=== PATIENT | male | born 1975 | race African-American/Black ===

== ENCOUNTER → 2017-02-07 | Outpatient (CLI) | payer MEDICARE, MEDICAID ==
[~2017-02-07] MED LIST: IOHEXOL-300 100 ML BOTTLE ONE; SODIUM CHLORIDE 0.9% 10ML VIAL ONE
== END | disposition home or self-care (01) ==
LOC: CT 07:46
PROVIDERS: ATTEND Urology
DX: N28.1 Cyst of kidney, acquired (principal); Z85.47 Personal history of malignant neoplasm of testis; R05 Cough; N20.0 Calculus of kidney
CPT/HCPCS: 71010; 74178; A4216; Q9967

== ENCOUNTER → 2017-12-09 | Outpatient (CLI) | payer MEDICARE, MEDICAID ==
[~2017-12-09] MED LIST changes: -SODIUM CHLORIDE 0.9% 10ML VIAL ONE
== END | disposition home or self-care (01) ==
LOC: CT 08:16
PROVIDERS: ATTEND Urology
DX: C62.90 Malignant neoplasm of unspecified testis, unspecified whether descended or undescended (principal); N28.1 Cyst of kidney, acquired
CPT/HCPCS: 71045; 74178; Q9967